=== PATIENT | female | born 1940 | race Caucasian/White ===

== ENCOUNTER → 2025-01-07 | Outpatient (REF) | payer MEDICARE ==
[~2025-01-07] MED LIST: AMLODIPINE BESYL5 MG PO; CYMBALTA60 MG PO; GABAPENTIN600 MG PO; GLIMEPIRIDE4 MG PO; HYDROCHLOROTHIA25 MG PO; LISINOPRIL40 MG PO; METFORMIN HCL1000 MG PO; METOPROLOL SUC100 MG PO; NORTRIPTYLINE H25 MG PO; OMEPRAZOLE40 MG PO; PIOGLITAZONE30 MG PO; SIMVASTATIN40 MG PO; TRILIPIX45 MG PO; ULTRAM50 MG PO
== END ==
LOC: RAD 12:24
PROVIDERS: ATTEND Internal Medicine
DX: M79.644 Pain in right finger(s) (principal); M25.552 Pain in left hip; R07.81 Pleurodynia; Z91.81 History of falling
CPT/HCPCS: 71101